=== PATIENT | female | born 1995 | race Caucasian/White ===

== ENCOUNTER 2017-04-24 16:05 | Inpatient (IN) | payer OTHER ==
[~2017-04-24] VITALS: Ht 167.6 cm; Wt 62.8 kg
[~2017-04-24 16:05] MED LIST: ALEVE220 MG PO; PRENATAL TABLE1 EAC3 PO
[2017-04-24 16:44] LABS: APPEARANCE SL.HAZY ((CLEAR)); BILIRUBIN NEGATIVE; BLOOD SMALL; COLOR YELLOW ((YELLOW)); GLUCOSE (STRIP) NEGATIVE; KETONES NEGATIVE; LEUKOCYTES NEGATIVE; NITRITE NEGATIVE; PROTEIN (STRIP) 100; UROBILINOGEN 0.2 MG/DL (0.2-1.0)
[2017-04-24 16:47] LABS: HEMATOCRIT 42.5 % (36.0-46.0); HEMOGLOBIN 13.3 G/DL (11.9-15.5); MCH 30.9 PG (29.0-34.0); MCHC 31.3 G/DL (30.0-36.0); MCV 98.6 FL (83-99); PLATELET COUNT 266 K/uL (156-360); RBC DIS.WIDTH-CV 12.2 % (11.8-14.6); RBC DIS.WIDTH-SD 45.2 % (39-53); RED BLOOD COUNT 4.31 M/uL (3.80-5.20)
[2017-04-24 16:51] LABS: BACTERIA RARE /HPF; EPITHELIAL CELLS RARE /HPF; HYALINE CASTS 0-5 /LPF; MUCUS TRACE /LPF; RED BLOOD CELLS 0-5 /HPF (0-5); WHITE BLOOD CELLS 0-5 /HPF (0-5)
[2017-04-24 16:53] LABS: AMPHETAMINE NEGATIVE (500 ng/mL); BARBITURATES NEGATIVE (200 ng/mL); BENZODIAZEPINES NEGATIVE (150 ng/mL); BUPRENORPHINE NEGATIVE (10 ng/mL); COCAINE NEGATIVE (150 ng/mL); METHADONE NEGATIVE (200 ng/mL); METHAMPHETAMINE NEGATIVE (500 ng/mL); OPIATES (MORPHINE) NEGATIVE (100 ng/mL); OXYCODONE NEGATIVE (100 ng/mL); PHENCYCLIDINE NEGATIVE (25 ng/mL); PROPOXYPHENE NEGATIVE (300 ng/mL); THC CANNABINOIDS PRESUMPTIVE POSITIVE (50 ng/mL); TRICYCLIC ANTIDEPRESSANTS NEGATIVE (300 ng/mL)
[2017-04-24 17:01] LABS: ALBUMIN 4.3 g/dL (3.2-4.8); CHLORIDE 103 mEq/L (99-109); POTASSIUM 3.4 mEq/L (3.7-5.4); SODIUM 138 mEq/L (136-147)
[2017-04-24 17:03] LABS: GLUCOSE 153 mg/dL (70-99)
[2017-04-24 17:04] LABS: TOTAL PROTEIN 7.9 g/dL (6.4-8.3)
[2017-04-24 17:05] LABS: TOTAL BILIRUBIN 0.4 mg/dL (0.0-1.0)
[2017-04-24 17:06] LABS: SERUM ETHYL ALCOHOL < 10 mg/dL
[2017-04-24 17:07] LABS: ALKALINE PHOSPHATASE 54 IU/L (3-129); CREATININE 1.2 mg/dL (0.6-1.3); GFR ESTIMATE (CALCULATED) > 59 mL/min/
[2017-04-24 17:08] LABS: TROP-I INTERPRETATION NEGATIVE; TROPONIN-I < 0.01 ng/mL (0.0-0.30); UREA NITROGEN (BUN) 15 mg/dL (9-23)
[2017-04-24 17:09] LABS: AST (GOT) 24 IU/L (2-34)
[2017-04-24 17:10] LABS: ALT (GPT) 19 IU/L (3-49); CREATINE KINASE 96 IU/L (1-294)
[2017-04-24 17:15] LABS: BASE EXCESS -8.1 mEq/L (-3 to +3); BICARBONATE 19.6 mEq/L (22-26); METHEMOGLOBIN 1.1 % (0-1.5); PCO2 48 mm Hg (35-45); PO2 324 mm Hg (80-100); pH 7.22 (7.35-7.45)
[2017-04-24 17:16] LABS: QUANTITATIVE HCG < 4.0 MIU/ML
[2017-04-24 17:16] LABS: COMMENTS - BLOOD GASES A+C+; DEVICE VENT; FI02 60 %; MECHANICAL RATE 16 resp/min; MODE AC; PEEP 6 CM/H20; SITE RR; TIDAL VOLUME 400 ML; TOTAL RESP RATE 16 resp/min
[2017-04-24] MEDS ORDERED: TYLENOL EXTRA500 MG PO (19:38)
[2017-04-24] MEDS ORDERED: BIRTH CONTROL PO (19:40)
[2017-04-24 20:10] VITALS: BP 122/72
[2017-04-24 20:13] VITALS: BP 122/72
[2017-04-24 20:16] LABS: ACETAMINOPHEN (TYLENOL) < 10 mcg/mL (10-30); SALICYLATE < 5.0 MG/DL (15-30)
[2017-04-24 20:30] VITALS: BP 110/66
[2017-04-24 21:00] VITALS: BP 110/67
[2017-04-24 21:45] LABS: PTT 21.9 SEC (25-37)
[2017-04-24 22:00] VITALS: BP 112/69
[2017-04-24 23:00] VITALS: BP 125/81
[2017-04-25] VITALS (16 sets, daily range): BP systolic 99–126; BP diastolic 51–103
[2017-04-25 03:38] LABS: CSF EOSINOPHILS 0 % (0-25); MONONUCLEAR WBC'S 80 % (50-90); POLYNUCLEAR WBC'S 20 % (0-3)
[2017-04-25 03:41] LABS: APPEARANCE CLEAR/COLORLESS; CSF TUBE NUMBER TUBE #4
[2017-04-25 03:47] LABS: RED CELL COUNT 0 /MM^3 (0-1); WHITE CELL COUNT 7 /MM^3 (0-5)
[2017-04-25 04:17] LABS: CSF PROTEIN 43 mg/dL (15-45)
[2017-04-25 04:22] LABS: GLUCOSE, CSF 68 mg/dL (40-80)
[2017-04-25 06:24] LABS: HIGH-SENS C-REACTIVE PROTEIN 0.13 MG/DL (0.02-0.20)
[2017-04-25 09:32] LABS: LYME DISEASE SEROLOGY SCREEN NEGATIVE (NEGATIVE)
[2017-04-25 12:14] LABS: ANTI-DOUBLE STRANDED DNA 16 U/mL (0-99)
[2017-04-26] VITALS (8 sets, daily range): BP systolic 101–137; BP diastolic 62–96
[2017-04-26 09:59] LABS: CHLORIDE 106 MEQ/L (99-109); POTASSIUM 4.3 MEQ/L (3.7-5.4); SODIUM 141 MEQ/L (136-147)
[2017-04-26 10:05] LABS: CREATININE 0.8 MG/DL (0.6-1.3); GFR ESTIMATE (CALCULATED) > 59 mL/min/; GLUCOSE 120 mg/dL (70-99); UREA NITROGEN (BUN) 11 mg/dL (9-23)
[2017-04-26 22:32] LABS: HSV CSF Spec Source CSF (())
[2017-04-27 00:47] VITALS: BP 133/58
[2017-04-27 03:20] VITALS: BP 127/84
[2017-04-27 07:04] VITALS: BP 108/70
[2017-04-27] MEDS ORDERED: KEPPRA500 MG PO (08:59)
[2017-04-27] MEDS ORDERED: BUTALB-APAP-CA1 EACH PO (08:59)
[2017-04-27 12:08] LABS: HSV-1 IgG Antibody 4.26 Index (<0.90); HSV-2 IgG Antibody <0.90 Index (<0.90)
== END 2017-04-27 11:04 | disposition home or self-care (01) | DRG 100 ==
LOC: EME 16:05 → EDOF 18:28 → 5SOUTH 18:28 → 4WEST 18:28 → ENRESERV 18:31 → 4WEST 20:07 → ENRESERV 04-26 08:32 → 5SOUTH 04-26 10:06
PROVIDERS: Emergency Medicine; Hospitalist; Internal Medicine; Internal Medicine Critical Care Medicine
DX: G40.409 Other generalized epilepsy and epileptic syndromes, not intractable, without status epilepticus (principal); G35 Multiple sclerosis; J96.00 Acute respiratory failure, unspecified whether with hypoxia or hypercapnia; D64.9 Anemia, unspecified; F12.10 Cannabis abuse, uncomplicated; I48.91 Unspecified atrial fibrillation; E87.2 Acidosis; F41.9 Anxiety disorder, unspecified; Z79.899 Other long term (current) drug therapy; Z87.891 Personal history of nicotine dependence
CPT/HCPCS: 36600; 70450; 70553; 71010; 71275; 80048; 80053; 80202; 81003; 82550; 82803; 82945; 83873 90; 83916 90; 83930; 84145 90; 84157; 84484; 84702; 84999; 85027; 85610; 85730; 86038; 86141; 86235; 86592 90; 86617 90; 86618; 86618 90; 86695 90; 86696 90; 87070; 87205; 87252 90; 87254 90; 87449; 87502; 87529 90; 87641; 89051; 93005; 94002; 94003; 94799; 95819; 99281; 99285; C9113; G0480; J0133; J0153; J0696; J1100; J1644; J1953; J2060; J2250; J2405; J2704; J3010; J3370; J7030; J7050; S0028

== ENCOUNTER → 2017-05-10 | Outpatient (CLI) | payer OTHER ==
[~2017-05-10] MED LIST changes: +BIRTH CONTROL PO; +BUTALB-APAP-CA1 EACH PO; +KEPPRA500 MG PO; +TYLENOL EXTRA500 MG PO
== END | disposition home or self-care (01) ==
LOC: CDC 11:33
DX: Z79.899 Other long term (current) drug therapy (principal); I49.8 Other specified cardiac arrhythmias; G35 Multiple sclerosis
CPT/HCPCS: 93000